=== PATIENT | male | born 1985 | race Caucasian/White ===

== ENCOUNTER 2017-01-10 14:24 | Emergency (ER) | payer OTHER ==
[~2017-01-10] VITALS: Ht 177.8 cm; Wt 79.5 kg
[2017-01-10 14:37] VITALS: BP 137/82; PULSE 65; RESP 18; O2SAT 99
--- NOTE | 2017-01-10 16:45 | ED.REPORT ---
HPI-General Illness Date of Service Jan 10, 2017 ED Provider: Keyur White MD Anthony is a 31-year-old male with a chief complaint of a infection in his right shoulder. Patient reports being hospitalized at until 3 weeks ago when he was discharged with a prescription for IM morphine. He reports pain in the region for approximately 5 days and swelling over the last 2 days. He also reports reduced energy. Denies fever, chills, vomiting, abdominal pain, sweats. Nursing Notes Stated Complaint: POSS INFECTION IN RIGHT SHOULDER Chief Complaint: Skin Rash/Abscess Nursing Notes Reviewed: Yes Allergies: Coded Allergies: No Known Allergies (Unverified , 01/10/17) General Time Seen by MD: 16:44 Chief Complaint Other (redness and swelling in the right shoulder.) Past Medical History Past Medical History Reports hospitalization at for complicated perforation of his esophagus. Review of Systems Negative unless stated otherwise in history of present illness Physical Exam General: Well appearing, well developed, well nourished, no acute distress. Right shoulder: Approximately 4 cm area of redness and swelling with associated tenderness. There is no obvious pointing abscess. Head: Atraumatic, normocephalic. Eyes: No scleral icterus or injection. No discharge. Vision grossly intact. ENT: Voice clear, hearing grossly intact. Respiratory: Regular rate and rhythm. Breath sounds present, clear to auscultation and equal bilaterally. No respiratory distress. No increased work of breathing, speaks in complete sentences. Cardiovascular: Tachycardic rate at 108 and regular rhythm, without murmur, gallop or rub. No pedal edema. Gastrointestinal: Abdomen flat and non-tender without guarding or rebound. Bowel sounds normoactive. Skin: Warm and dry. Neurological: Grossly nonfocal. Psychological: Alert and oriented. Speech appropriate, linear and logical. Behavior appropriate. Vital Signs Vital Signs Date Time Temp Pulse Resp B/P Pulse Ox O2 Delivery O2 Flow Rate FiO2 01/10/17 14:37 37.3 65 18 137/82 99 Room Air Normal Discharge & Departure Departure Notes 31-year-old male presenting with an apparent abscess on his right shoulder. I met with and examined him. He is generally well appearing with redness and swelling of the right shoulder. Mild tachycardia is noted, but vitals are otherwise normal and he is afebrile. We discussed the plan of placing an IV line, drawing labs, ultrasound of the apparent abscess and possibly an incision and drainage. The patient at that time seemed amenable. However, approximately 15 minutes later the patient's nurse informed me that he and his container coordinator had left the building. We waited a approximately 15 or 20 minutes before determining that they would not return. While I did note some mild tachycardia on physical examination, the patient is otherwise well-appearing I have little concern for sepsis. I also believe the patient is alert, oriented and competent to make this decision. Primary Impression: Abscess Disposition: AGAINST MEDICAL ADVICE Referrals: NOPCP (PCP) EDSupervising Provider for APC: Keyur White MD Attending Statement Attending attestation: I saw this patient in conjunction with Valdo Martínez PA-C. I agree with the workup, evaluation, treatment and disposition. Keyur Carmen MD, MD Jan 10, 2017 16:45 Valdo Martínez PA-C Jan 10, 2017 21:45
[2017-01-10] MEDS ORDERED: 0.9% Sodium Chloride 1,000 ML IV ONE (16:50)
== END 2017-01-10 18:20 | disposition left against medical advice (07) ==
LOC: SED 14:24
DX: L02.413 Cutaneous abscess of right upper limb (principal)

== ENCOUNTER 2017-01-26 19:39 | Emergency (ER) | payer OTHER ==
[~2017-01-26] VITALS: Ht 177.8 cm; Wt 81.8 kg
[2017-01-26 19:42] VITALS: BP 109/75; PULSE 132; RESP 16; O2SAT 99
[2017-01-26] MEDS ORDERED: Albuterol 0.5% (5mg/mL) 20 mL Inhalation Solution ONE (19:44)
[2017-01-26] MEDS ORDERED: Albuterol 2.5 mg/3 mL Inhalation Solution NEB ONE ×5 (19:45→23:50)
[2017-01-26] MEDS ORDERED: MethylprednisoLONE Sodium Succinate 62.5 mg/mL 2 mL Inj IVPUSH ONE (19:45)
[2017-01-26] MEDS ORDERED: 0.9% Sodium Chloride 1,000 ML IV ONE (19:45)
--- NOTE | 2017-01-26 19:46 | ED.REPORT ---
HPI-Dyspnea / Wheezing Date of Service Jan 26, 2017 ED Provider: Simon Mejia MD Pt is a 31 y/o male w/ a hx of IVDA, asthma, presenting to the ED via EMS due to respiratory distress onset yesterday. The patient began to feel that his breathing was "tight" 3-4 days ago and took 1 dose of Prednisone but stopped because he doesn't like how it made him feel. He tried another dose of Prednisone last night but couldn't keep it down. He has been using his prescribed albuterol inhalers. Today, his breathing worsened and called EMS. EMS arrived to find the patient in severe respiratory distress with oxygen sat of 86% on RA. CPAP was applied on route along with multiple albuterol treatments with good relief. He arrives in moderate respiratory distress w/ an oxygen saturation of 98% on RA. Pt denies fever, smoking, severe cough, or any obvious triggers. He describes this as an asthma attack similar to previous episodes but more severe. He is feeling improved at time of arrival. He does have a history of a left-sided pneumothorax requiring chest tubes and intubation performed at [facility] 4 years ago. Nursing Notes Stated Complaint: SHORTNESS OF BREATH Chief Complaint: Respiratory Distress Nursing Notes Reviewed: Yes (K1 Speed, meds not reconciled ) Allergies: Coded Allergies: No Known Allergies (Unverified , 01/10/17) Scheduled Beclomethasone Dipropionate (Qvar) 8.7 Gm Aer.w.adap 1 PUFF INHALATION BID Prednisone (PredniSONE) 20 Mg Tablet 60 MG PO DAILY Scheduled PRN Albuterol HFA (Proair HFA) 8.5 Gm Hfa.aer.ad 2 PUFFS INHALATION Q4H PRN PRN For Shortness of Breath Albuterol Neb Soln (Albuterol Neb Soln) 2.5 Mg/3 Ml Vial.neb 2.5 MG INHALATION Q4H PRN PRN For Shortness of Breath General Time Seen by MD: 19:42 Chief Complaint Asthma attack Hx Obtained From: Patient, EMS Arrived By: Ambulance Sudden in Onset?: No Onset Occurred: 4 days ago Symptom Duration: Since onset Severity: Current: No pain currently Severity: Maximum: No pain Recent Healthcare: Previous diagnosis Similar Sx Previous: Yes Past Medical History Past Medical History Reports hospitalization at for complicated perforation of his esophagus. Severe asthma (prior admissions, prior intubation) h/o Left pneumothorax Past Surgical History Left thoracostomies for PTX Smoking History Never Smoker Social History Drug Use: IV drugs Ambulatory Status Independent Review of Systems Constitutional: Denies: Chills, Fever Respiratory: Reports: Shortness of breath, Wheezing, Denies: Non-productive cough Cardiovascular: Denies: Chest pain Complete sys rev & neg: except as marked. Physical Exam Initial Vital Signs Vital Signs (First) Date Time Temp Pulse Resp B/P Pulse Ox O2 Delivery O2 Flow Rate FiO2 01/26/17 19:42 36.5 132 16 109/75 99 Simple Mask 9 Initial VS: Reviewed, Vital signs abnormal Head / Eyes: Atraumatic, Normocephalic, PERRL ENT: Mucous membranes moist, Conjunctiva normal, No scleral icterus Skin: Warm, Dry, No cyanosis Neurologic: Alert, Oriented, Nonfocal Psychiatric: Mood/affect normal, Behavior normal, Normal thought content General/Constitutional: Awake, Alert, Cooperative, Not toxic appearing Distress / Hydration: Positive: Distress moderate (second to resp dist) Neck: Atraumatic, Supple, No meningismus, Full range of motion Respiratory / Chest: Breath sounds = bilat, No rhonchi, No stridor Resp Distress / Stridor: Positive: Resp distress moderate (improved from pre- hospital) Profound bronchospasm Multiple scars over L chest due to chest tubes Cardiovascular: Regular rhythm, Heart sounds NL, No murmurs Heart Rate / Rhythm: Positive: Tachycardia (profound) Interpretation & Diagnostics Lab Results Interpretation Result Diagram: 01/26/17195601/26/171956 Test 01/26/17 19:57 White Blood Count 9.0th/mm3 (3.8-10.1) Red Blood Count 4.63mil/mm3 (4.40-5.80) Hemoglobin 12.2g/dL (13.8-17.2) Hematocrit 38.3% (41.0-50.0) Mean Corpuscular Volume 82.7fL (81-100) Mean Corpuscular Hemoglobin 26.3pg (27.0-35.0) Mean Corpuscular Hemoglobin Concent 31.9% (32.0-37.0) Red Cell Distribution Width 16.7% (12.3-15.4) Platelet Count 255bil/L (150-400) Neutrophils (%) (Auto) 57.5% (40-74) Lymphocytes (%) (Auto) 25.7% (14-46) Monocytes (%) (Auto) 11.3% (4-12) Eosinophils (%) (Auto) 4.8% (0-5) Basophils (%) (Auto) 0.1% (0-3) Sodium Level 137mEq/L (134-144) Potassium Level 4.5mEq/L (3.5-5.2) Chloride Level 99mEq/L (97-108) Carbon Dioxide Level 24mmol/L (18-29) Blood Urea Nitrogen 16mg/dL (6-20) Creatinine 0.82mg/dL (0.76-1.27) Estimat Glomerular Filtration Rate 118mL/min (>59) Glucose Level 120mg/dL (60-99) Calcium Level 9.1mg/dL (8.5-10.1) Total Bilirubin 0.6mg/dL (0.0-1.2) Aspartate Amino Transf (AST/SGOT) 33U/L (0-50) Alanine Aminotransferase (ALT/SGPT) 17U/L (0-44) Alkaline Phosphatase 75U/L (25-150) Total Protein 7.3g/dL (6.4-8.4) Albumin 3.7g/dL (3.4-5.0) Hold Brito Top Tube Received (Received) Lab Results Interpretation: CBC normal CMP normal ECG Interpretation ECG Interpretation: Sinus tachycardia rate 133 Time: 20:00 Interpreted by: ED physician Normal ECG Interpretation: Normal sinus rhythm, No acute ischemic changes, Normal QRS, Normal axis, Normal intervals, Adequate tracing X-Ray Chest Interpretation Chest Xray Interpretation: IMPRESSION: 1. Blunting of the left costophrenic angle suggesting a small pleural effusion versus pleural thickening. 2. No focal consolidation. Dictated by: Cristiano Adams M.D. on 01/26/2017 at 20:33 Approved by: Cristiano Adams M.D. on 01/26/2017 at 20:34 View: Portable, 1 view Interpretation / Wet Read by: Interpret - Radiologist Re-Eval/Medical Decision Med Decision/Clinical Course This is a 31-year-old male history substance abuse and severe asthma is been intubated in the past, developed a typical asthma exacerbation last night, is running out of medicines, and became increasingly short of breath. He is found in severe distress by EMS and required BiPAP support on the way in. On arrival he still bronchospastic, tachycardic reports no fever or they are clear overt infectious symptoms. He does admit IVDA. The patient required multiple rounds of albuterol, received steroids, he received magnesium, and is briefly placed on BiPAP appears well-received an IM dose of epinephrine as IV access was extremely limited initially. He has a previous history of pneumothorax, but his chest x-ray is negative today. Fortunate he started to respond, and is his respiratory distress completely resolved. Remained persistently bronchospastic. Had a long discussion regarding admission versus discharge, the patient preferred to see if he continued to improve the hopes he can be discharged home. Took a number of hours and multiple repeated nebulizers, the patient made marked improvement-again his distress resolved, as bronchospasm improved, is now able to ambulate and maintain oxygenation. Therefore think it is resolved for him to be discharged to home-written a refill for albuterol MDI, albuterol nebulizer, he is not on a steroid inhalers written a prescription for Qvar, and written prescription for oral steroids as well. Routine precautions reviewed. Source of Hx: Old records (none in EMR), EMS Re-Evaluation/Progress #1: Time of Eval: 20:12 Re-Evaluation/Progress Note: Pt rechecked. Still bronchospastic. He is not worse but not better. Initially was requesting only CPAP instead of BiPAP due to anxiety. Will begin BiPAP. Re-Evaluation/Progress #2: Time of Eval: 21:34 Re-Evaluation/Progress Note: Pt rechecked. Doing better. Remains bronchospastic but is now in no distress. Re-Evaluation/Progress #3: Time of Eval: 22:31 Re-Evaluation/Progress Note: Pt rechecked. Doing better. Still some wheezing. No distress. Would like us to give him a couple more hours to see if he is doing well enough to go home. Re-Evaluation/Progress #4: Time of Eval: 23:49 Re-Evaluation/Progress Note: Pt rechecked. Still wheezing. Appears much better overall. No distress. Re-Evaluation/Progress #5: Time of Eval: 01:00 Re-Evaluation/Progress Note: Feeling better. Requesting 1 more round of nebulizer and then dc. Differential Diagnosis: Positive: Asthma, Respiratory insufficiency, Negative: COPD exacerbation, Myocardial infarction, Pneumonia, Pneumothorax Counseled Regarding: Diagnosis, Lab results, Need for follow-up, When/why to return to ED Discharge & Departure Impression: Primary Impression: Acute asthma exacerbation Asthma severity: moderate persistent Qualified Code: J45.41 - Moderate persistent asthma with (acute) exacerbation Disposition: Home Discharge Condition All VS Reviewed: Yes Condition: Stable Referrals: NOPCP (PCP) Crit Care Except Billable Proc Time Spent: 30-74 minutes Services Performed: Patient management by me, Time spent at bedside, Reviewing test results, Reviewing imaging, Discussing patient care, Documentation in record Critical Care Notes: Patient arrived critically Scribe Attestation Portions of this note were transcribed by Dilshad Dickens. I, Dr. Mejia personally performed the history, physical exam and medical decision-making; I reviewed and confirmed the accuracy of the information in the transcribed note. Simon Mejia MD Jan 26, 2017 19:46 DILSHAD DICKENS Jan 26, 2017 20:06
[2017-01-26 20:01] VITALS: PULSE 134; RESP 20; O2SAT 100
[2017-01-26 20:13] LABS: BASOPHILS % (AUTO) 0.1 % (0-3); EOSINOPHILS % (AUTO) 4.8 % (0-5); MONOCYTES % (AUTO) 11.3 % (4-12); Mean Corpuscular Hemoglobin 26.3 pg (27.0-35.0); Mean Corpuscular Volume 82.7 fL (81-100); NEUTROPHILS % (AUTO) 57.5 % (40-74); Platelet Count 255 bil/L (150-400)
[2017-01-26] MEDS ORDERED: Magnesium Sulf 2 Gm/50mL Water 2 GM in IV Premix 1 EACH IV ONE (20:20)
--- NOTE | 2017-01-26 20:35 | DRSVH ---
PROCEDURE: X-RAY CHEST ONE VIEW, PORTABLE ([id number]) INDICATIONS: SOB TECHNIQUE: One view of the chest was acquired. COMPARISON: None. FINDINGS: Surgical changes and devices: None. Lungs and pleura: There is mild blunting of left costophrenic angle suggesting a small pleural effus ion. Lungs are otherwise clear. Mediastinum: Mediastinal contours appear normal. Heart size is normal. Bones and chest wall: No suspicious bony lesions. Overlying soft tissues appear unremarkable. IMPRESSION: 1. Blunting of the left costophrenic angle suggesting a small pleural effusion versus pleural thicke merari. 2. No focal consolidation. Dictated by: Cristiano Adams M.D. on 01/26/2017 at 20:33 Approved by: Cristiano Adams M.D. on 01/26/2017 at 20:34
[2017-01-26 21:42] VITALS: PULSE 124; RESP 16; O2SAT 97
[2017-01-26 22:15] VITALS: BP 123/87; PULSE 131; RESP 12; O2SAT 100
[2017-01-26 23:59] VITALS: PULSE 100; RESP 18; O2SAT 95
[2017-01-27] MEDS ORDERED: BECL8.7A5 INHALATION (00:07)
[2017-01-27] MEDS ORDERED: PRE20 PO (00:07)
[2017-01-27] MEDS ORDERED: ALBU8.5H2 INHALATION (00:07)
[2017-01-27] MEDS ORDERED: ALBU2.5V4 INHALATION (00:07)
[2017-01-27 00:22] VITALS: BP 111/61; PULSE 126; RESP 10; O2SAT 98
[2017-01-27 02:13] VITALS: PULSE 104; RESP 18; O2SAT 97
[2017-01-27] MEDS ORDERED: Dexamethasone 20 mg/2 mL Oral Solution PO ONE (02:20)
[2017-01-27 02:40] VITALS: BP 124/57; PULSE 136; RESP 22; O2SAT 97
== END 2017-01-27 02:51 | disposition home or self-care (01) ==
LOC: EDBD 19:39 → EDUNIT# 19:39 → SED 19:39
DX: J45.41 Moderate persistent asthma with (acute) exacerbation (principal)
CPT/HCPCS: 36415; 71010; 80053; 85025; 93005; 94644; 94645; 96361; 96372; 96374; 96375; 99291; J0171; J2060; J2930; J7030; J7613